=== PATIENT | male | born 1945 | race Caucasian/White ===

== ENCOUNTER 2019-11-25 06:46 | Inpatient (IN) ==
[2019-11-18 14:15] LABS: Basophils # 0.1 10*3/uL (0.0-0.2); Eosinophils # 0.3 10*3/uL (0.0-0.87); Eosinophils % 4.2 % (0.00-10.9); Hematocrit 44.2 VOL% (42.0-52.0); Hemoglobin 14.6 GM/DL (14.0-18.0); Immature Granulocytes % 0.2 %; Immature Granulocytes Absolute 0.02 #; Lymphocytes # 3.2 10*3/uL (1.4-4.0); Lymphocytes % 38.7 % (21.2-54.2); Mean Corpuscular Volume 93.2 FL (87-102); Mean Platelet Volume 11.6 FL (9.6-12.0); Monocytes % 6.9 % (1.7-12.7); Platelet Count 190 T/CUMM (130-400); Red Blood Count 4.74 MC/CUMM (3.8-5.5); Red Cell Distribution Width 14.3 % (9.3-17.3); White Blood Count 8.1 T/CUMM (4-12)
[2019-11-18 14:32] LABS: Albumin 3.5 G/DL (3.4-5.0); Bilirubin,Total 0.4 MG/DL (0.2-1.0); Calcium 9.3 MG/DL (8.5-10.1); Osmolality,Calculated 281.4 MOS/KG (273-304); Total Protein 6.9 G/DL (6.4-8.3)
[~2019-11-25 06:46] MED LIST: ceFAZolin 1,000 MG in SYRINGE 1 EACH IV ONE
[2019-11-25] MEDS ORDERED: FAMOTIDINE 20 MG TABLET PO ONE (07:12)
[2019-11-25] MEDS ORDERED: DIAZEPAM 5 MG TABLET PO ONE (07:12)
[2019-11-25] MEDS ORDERED: ALBUTEROL/IPRATROPIUM 3 ML NEB RESP TX ONE (07:12)
[2019-11-25] MEDS ORDERED: LACTATED RINGERS 1,000 ML IV SCH (07:30)
[2019-11-25] MEDS ORDERED: ceFAZolin 1,000 MG VIAL ONE (07:31)
[2019-11-25] MEDS ORDERED: DIAZEPAM 5 MG TABLET ONE (07:32)
[2019-11-25] MEDS ORDERED: FAMOTIDINE 20 MG TABLET ONE (07:32)
[2019-11-25] MEDS ORDERED: KETOROLAC 15 MG/1 ML VIAL IV PRN (12:51)
[2019-11-25] MEDS ORDERED: ONDANSETRON 4 MG/2 ML VIAL IV PRN (12:51)
[2019-11-25] MEDS ORDERED: BUDESONIDE/FORMOTEROL 160-4.5 INHALER 6 GM INH PRN (12:54)
[2019-11-25] MEDS ORDERED: LIDOCAINE 2% 5 ML VIAL ONE (13:07)
[2019-11-25] MEDS ORDERED: SEVOFLURANE 1 UNIT/15 MINUTE INH ONE (13:07)
[2019-11-25] MEDS ORDERED: propofoL 200 MG/20 ML VIAL IV ONE (13:07)
[2019-11-25] MEDS ORDERED: ePHEDrine 50 MG/ML VIAL ONE (13:08)
[2019-11-25] MEDS ORDERED: PHENYLEPHRINE 1 MG/10 ML SYRINGE IV ONE (13:08)
[2019-11-25] MEDS ORDERED: MIDAZOLAM 2 MG/2 ML VIAL ONE (13:08)
[2019-11-25] MEDS ORDERED: GLYCOPYRROLATE 0.4 MG/2 ML VIAL ONE (13:08)
[2019-11-25] MEDS ORDERED: fentaNYL 100 MCG/2 ML VIAL ONE (13:08)
[2019-11-25] MEDS ORDERED: LACTATED RINGERS 1,000 ML IV ONE (13:09)
[2019-11-25] MEDS ORDERED: ROCURONIUM 100 MG/10 ML VIAL IV ONE (13:09)
[2019-11-25] MEDS ORDERED: NEOSTIGMINE 10 MG/10 ML VIAL ONE (13:09)
[2019-11-25] MEDS: POTASSIUM CHLORIDE INJ 10 MEQ in SODIUM CHLORIDE 0.45% 1,000 ML IV SCH (15:29)
[2019-11-25] MEDS: HYDROmorphone 2 MG/1 ML VIAL IV PRN ×2 (16:30→23:42)
[2019-11-25] MEDS ORDERED: PNEUMOCOCCAL VACCINE (13 VALENT) 0.5 ML SYRINGE IM ONE (16:32)
[2019-11-25] MEDS: ROSUVASTATIN 10 MG TABLET PO SCH (20:35)
[2019-11-26] MEDS: POTASSIUM CHLORIDE INJ 10 MEQ in SODIUM CHLORIDE 0.45% 1,000 ML IV SCH (01:06)
[2019-11-26] MEDS: HYDROmorphone 2 MG/1 ML VIAL IV PRN (04:03)
[2019-11-26] MEDS: ENOXAPARIN 40 MG/0.4 ML SYRINGE SUBCUT SCH (06:05)
[2019-11-26] MEDS: FLUTICASONE 50 MCG NASAL SPRAY 16 GM BOTTLE BOTH NARES SCH (08:29)
[2019-11-26] MEDS: ROSUVASTATIN 10 MG TABLET PO SCH (20:07)
[2019-11-27] MEDS ORDERED: ALUMINUM/MAGNES/SIMETH MAX STR 30 ML UDCUP PO ONE (02:51)
[2019-11-27] MEDS: ENOXAPARIN 40 MG/0.4 ML SYRINGE SUBCUT SCH (06:00)
[2019-11-27] MEDS ORDERED: ALBUTEROL/IPRATROPIUM 3 ML NEB RESP TX ONE (08:36)
[2019-11-27] MEDS: FLUTICASONE 50 MCG NASAL SPRAY 16 GM BOTTLE BOTH NARES SCH (09:00)
[2019-11-27] MEDS ORDERED: ALUMINUM/MAGNES/SIMETH MAX STR 30 ML UDCUP PO PRN (11:22)
[2019-11-27] MEDS: methylPREDNISolone SOD SUC 40 MG/1 ML VIAL IV SCH ×2 (13:29→21:08)
[2019-11-27] MEDS: ALBUTEROL/IPRATROPIUM 3 ML NEB RESP TX SCH (19:26)
[2019-11-27] MEDS: ROSUVASTATIN 10 MG TABLET PO SCH (21:07)
[2019-11-28] MEDS: ALBUTEROL/IPRATROPIUM 3 ML NEB RESP TX SCH ×2 (02:10→07:14)
[2019-11-28] MEDS: methylPREDNISolone SOD SUC 40 MG/1 ML VIAL IV SCH (06:26)
[2019-11-28] MEDS: FLUTICASONE 50 MCG NASAL SPRAY 16 GM BOTTLE BOTH NARES SCH (08:04)
[2019-11-28] MEDS: ENOXAPARIN 40 MG/0.4 ML SYRINGE SUBCUT SCH (08:05)
[2019-11-28 09:25] VITALS: BP 169/99
== END 2019-11-28 11:18 | disposition home or self-care (01) | DRG 164 ==
LOC: N.OR 06:46 → N.SDSINP 06:49 → N.4E 14:08
PROVIDERS: ADMIT Surgery; ATTEND Surgery